=== PATIENT | male | born 2000 | race Caucasian/White ===

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

== ENCOUNTER 2023-08-31 17:17 | Emergency (ER) | payer OTHER, SELFPAY ==
[~2023-08-31] VITALS: Ht 180.3 cm; Wt 68.0 kg
[~2023-08-31 17:17] MED LIST: DIVA250T67 PO; INVE156I IM; INVE3TAB2 PO; LITH300T2 PO; TRAZ-252 PO
[2023-08-31 17:18] VITALS: BP 141/73; TEMP 98.1; O2SAT 96
== END 2023-08-31 17:20 | disposition left against medical advice (07) ==
LOC: M ED 17:17
DX: Z53.21 Procedure and treatment not carried out due to patient leaving prior to being seen by health care provider (principal)